=== PATIENT | female | born 1950 ===

== ENCOUNTER 2024-04-23 11:30 | Inpatient (IN) | payer OTHER ==
[~2024-04-23] VITALS: Ht 91.4 cm; Wt 57.6 kg
[2024-04-23 13:51] VITALS: BP 153/73
[2024-04-23] MEDS ORDERED: NORVASC2.5 M1 PO (13:57)
[2024-04-23] MEDS ORDERED: BENICAR40 MG PO (13:57)
[2024-04-23] MEDS ORDERED: FARESTON60 MG (13:58)
[2024-04-23] MEDS ORDERED: METFORMIN HCL500 MG (13:59)
[2024-04-23] MEDS ORDERED: ZOLOFT20 MG/1 ML (13:59)
[2024-04-23] MEDS ORDERED: ATIVAN4 MG/1 ML (13:59)
[2024-04-23] MEDS ORDERED: CRESTOR40 MG PO (14:01)
[2024-04-23 15:18] LABS: RH POSITIVE
[2024-05-03] MEDS ORDERED: METRONIDAZOLE/SODIUM CHLORIDE 500 MG/100 ML PIGGYBACK IV ONE (06:17)
[2024-05-03] MEDS ORDERED: CEFTRIAXONE SODIUM 2,000 MG VIAL ONE (06:17)
[2024-05-03] MEDS ORDERED: BUPIVACAINE HCL/MPF 0.5% 30ML VIAL ONE (07:00)
[2024-05-03] MEDS ORDERED: LIDOCAINE HCL 1%/EPINEPHRINE 20ML VIAL IJ ONE (07:00)
[2024-05-03] MEDS ORDERED: ENALAPRILAT DIHYDRATE 1.25 MG/ML VIAL IV ONE ×2 (08:42→12:11)
[2024-05-03] MEDS ORDERED: RINGERS SOLUTION,LACTATED 1,000 ML IV SCH (13:00)
[2024-05-03] MEDS ORDERED: ONDANSETRON HCL 2 MG/ML VIAL IV PRN (13:00)
[2024-05-03] MEDS ORDERED: DEXTROSE 50 % IN WATER 0.5 G/ML VIAL IV PRN (13:00)
[2024-05-03] MEDS ORDERED: OxyCODONE HCL 5 MG TABLET (ROXICODONE) PO PRN (13:00)
[2024-05-03] MEDS ORDERED: MORPHINE SULFATE 2 MG/ML CARTRIDGE IV PRN (13:00)
[2024-05-03] MEDS ORDERED: MORPHINE SULFATE 4 MG/ML VIAL IV ONE ×3 (13:15→14:00)
[2024-05-03 14:53] LABS: HEMOGLOBIN 12.2 g/dL (12.0-15.00); MEAN CORPUSCULAR HEMOGLOBIN 30.3 pg (27.00-32.0); MEAN CORPUSCULAR HGB CONC 32.9 g/dl (32.0-36.0); PLATELET COUNT 273 K/uL (150-450); RED BLOOD COUNT 4.03 M/uL (4.00-6.00); RED CELL DISTRIBUTION WIDTH 13.4 % (11.5-14.5)
[2024-05-03 15:19] LABS: ALBUMIN 3.8 gm/dL (3.4-5.0); CREATININE SERUM 1.04 mg/dL (0.55-1.02); GFR 51.52; MAGNESIUM 1.9 mg/dL (1.8-2.4); PHOSPHOROUS 4.4 mg/dL (2.5-4.9); POTASSIUM 4.42 mEq/L (3.5-5.1)
[2024-05-03] MEDS ORDERED: hydrALAZINE HCL 20 MG VIAL ONE (16:04)
[2024-05-03] MEDS ORDERED: SIMETHICONE 125 MG CAPSULE PO SCH (17:00)
[2024-05-03] MEDS ORDERED: POLYETHYLENE GLYCOL 3350 17 GM BLIST.PACK PO SCH (17:00)
[2024-05-03] MEDS ORDERED: ONDANSETRON HCL 2 MG/ML VIAL ONE (17:15)
[2024-05-03 17:49] VITALS: BP 154/83; O2SAT 94
[2024-05-03] MEDS ORDERED: MAGNESIUM SULFATE/D5W 100 ML IV NR (18:00)
[2024-05-03] MEDS ORDERED: ACETAMINOPHEN 500 MG GEL..CAP PO SCH (18:00)
[2024-05-03] MEDS ORDERED: FAMOTIDINE/PF 20 MG/2 ML VIAL IV PUSH SCH (21:00)
[2024-05-04] VITALS: BP 127/76; O2SAT 99
[2024-05-04 06:56] LABS: HEMATOCRIT 34.9 % (36.0-45.00); HEMOGLOBIN 11.8 g/dL (12.0-15.00); MEAN CELL VOLUME 91.4 fL (80.00-100.00); MEAN CORPUSCULAR HEMOGLOBIN 30.8 pg (27.00-32.0); MEAN CORPUSCULAR HGB CONC 33.7 g/dl (32.0-36.0); PLATELET COUNT 243 K/uL (150-450); RED BLOOD COUNT 3.82 M/uL (4.00-6.00); RED CELL DISTRIBUTION WIDTH 13.4 % (11.5-14.5)
[2024-05-04 07:43] LABS: ALBUMIN 3.4 gm/dL (3.4-5.0); CALCIUM 8.9 mg/dL (8.5-10.1); CREATININE SERUM 0.97 mg/dL (0.55-1.02); GFR 55.83; MAGNESIUM 2.3 mg/dL (1.8-2.4); PHOSPHOROUS 3.3 mg/dL (2.5-4.9); POTASSIUM 4.64 mEq/L (3.5-5.1)
[2024-05-04 08:30] VITALS: BP 143/68; O2SAT 97
[2024-05-04] MEDS ORDERED: [UNRECOGNIZED DRUG - OTHER] PO SCH (09:00)
[2024-05-04] MEDS ORDERED: SERTRALINE HCL 25 MG TABLET PO SCH (09:00)
[2024-05-04] MEDS ORDERED: OLMESARTAN MEDOXOMIL 40 MG PO SCH (09:00)
[2024-05-04] MEDS ORDERED: AMLODIPINE BESYLATE 2.5 MG TABLET PO SCH (09:00)
[2024-05-04] MEDS ORDERED: NAPH,MB-DB/K PH,MBDB 1 PKT PACKET PO SCH (09:00)
[2024-05-04] MEDS ORDERED: MAGNESIUM CHLORIDE 70 MG TABLET.DR PO SCH (09:00)
[2024-05-04] MEDS ORDERED: LACTOBACILLUS ACIDOPHILUS 1 CAP CAP PO SCH (09:00)
[2024-05-04] MEDS ORDERED: LORazepam 0.5 MG TABLET PO SCH (12:00)
[2024-05-04 16:41] VITALS: BP 157/73; O2SAT 94
[2024-05-04] MEDS ORDERED: ENOXAPARIN SODIUM 40 MG/0.4 ML SYRINGE SUBCUTANEO SCH (17:00)
[2024-05-04] MEDS ORDERED: FAMOtidine 20 MG TABLET PO SCH (17:00)
[2024-05-04 21:40] VITALS: BP 114/81; O2SAT 97
[2024-05-04 23:52] VITALS: BP 135/82; O2SAT 100
[2024-05-05 06:58] LABS: HEMATOCRIT 33.8 % (36.0-45.00); HEMOGLOBIN 11.3 g/dL (12.0-15.00); MEAN CELL VOLUME 90.7 fL (80.00-100.00); MEAN CORPUSCULAR HEMOGLOBIN 30.2 pg (27.00-32.0); MEAN CORPUSCULAR HGB CONC 33.3 g/dl (32.0-36.0); PLATELET COUNT 236 K/uL (150-450); RED BLOOD COUNT 3.72 M/uL (4.00-6.00); RED CELL DISTRIBUTION WIDTH 13.7 % (11.5-14.5)
[2024-05-05 07:11] LABS: ALBUMIN 3.5 gm/dL (3.4-5.0); CALCIUM 9.2 mg/dL (8.5-10.1); CREATININE SERUM 0.78 mg/dL (0.55-1.02); GFR 71.81; MAGNESIUM 2.2 mg/dL (1.8-2.4); PHOSPHOROUS 2.1 mg/dL (2.5-4.9); POTASSIUM 3.65 mEq/L (3.5-5.1)
[2024-05-05 08:00] VITALS: BP 160/90; O2SAT 95
[2024-05-05] MEDS ORDERED: POTASSIUM PHOS,M-BASIC-D-BASIC 15 MM in 0.9 % SODIUM CHLORIDE 250 ML IV ONE (12:00)
[2024-05-05 16:00] VITALS: BP 134/75; O2SAT 96
[2024-05-06 00:35] VITALS: BP 137/79; O2SAT 97
[2024-05-06 07:53] LABS: HEMATOCRIT 30.8 % (36.0-45.00); HEMOGLOBIN 10.6 g/dL (12.0-15.00); MEAN CELL VOLUME 90.9 fL (80.00-100.00); MEAN CORPUSCULAR HEMOGLOBIN 31.1 pg (27.00-32.0); MEAN CORPUSCULAR HGB CONC 34.3 g/dl (32.0-36.0); PLATELET COUNT 231 K/uL (150-450); RED BLOOD COUNT 3.39 M/uL (4.00-6.00); RED CELL DISTRIBUTION WIDTH 13.6 % (11.5-14.5)
[2024-05-06 08:27] VITALS: BP 115/80; O2SAT 96
[2024-05-06 08:36] LABS: CREATININE SERUM 0.79 mg/dL (0.55-1.02); GFR 70.76; MAGNESIUM 2.2 mg/dL (1.8-2.4); POTASSIUM 3.33 mEq/L (3.5-5.1)
[2024-05-06 08:47] LABS: PHOSPHOROUS 1.9 mg/dL (2.5-4.9)
[2024-05-06] MEDS ORDERED: NAPH,MB-DB/K PH,MBDB 1 PKT PACKET PO STA (09:29)
[2024-05-06] MEDS ORDERED: POTASSIUM PHOS,M-BASIC-D-BASIC 3 MM/ML VIAL IV NR (09:31)
[2024-05-06] MEDS ORDERED: NAPH,MB-DB/K PH,MBDB 1 PKT PACKET PO NR (13:00)
== END 2024-05-06 14:47 | disposition home or self-care (01) | DRG 331 ==
LOC: O/R 05-03 05:04 → SURH 05-03 11:30
PROVIDERS: ADMIT Colon & Rectal Surgery; ATTEND Colon & Rectal Surgery
PROC: 0DTU4ZZ Resection of Omentum, Percutaneous Endoscopic Approach (ICD-10-PCS; 2024-05-03)
PROC: 0DTG4ZZ Resection of Left Large Intestine, Percutaneous Endoscopic Approach (ICD-10-PCS; principal; 2024-05-03 13:00)
DX: K63.5 Polyp of colon (principal); R59.0 Localized enlarged lymph nodes